=== PATIENT | female | born 1990 | race Two or more races ===

== ENCOUNTER 2024-11-13 12:24 | Outpatient (REF) | payer MEDICAID, OTHER, SELFPAY ==
--- OUTSIDE RECORDS SUMMARY | 2024-11-13 14:43 | XMS_ITS | Clinical Summary ---
Author Organization [employer] Address [address] [place] [address] 7 [place] [address] Care Team Providers Care Banking Officer Name Role Phone Unavailable Primary Care Provider Unavailabl e Allergies No known active allergies Active Problems Problem Noted Date Diagnosed Date Breast pain, left 09/26/2024 Nipple pain 09/26/2024 Dysmenorrhea 09/26/2024 Assessment & Plan (09/26/2024 10:30 AM EST): Take medication with full stomach PRN Encounters Date Type Department Care Team Description 11/07/2024 Telephone [facility] [address] [place] [phone] Myke Leon MD 09/28/2024 Orders Only [facility] [address] [place] [phone] Robyn Mckoy MD Nipple pain (Primary Dx); Breast pain, left 09/28/2024 Telephone [facility] [address] [place] [phone] Robyn Mckoy MD BREAST ORDER 09/26/2024 10:20 AM EST Office Visit [facility] [address] [place] [address] [phone] Robyn Mckoy MD Breast pain, left (Primary Dx); Nipple pain; Dysmenorrhea 09/26/2024 Telephone [facility] [address] [place] [address] [phone] Robyn Mckoy MD New patient appt. from Last 3 Months Social History Tobacco Use Types Packs/Day Years Used Date Smoking Tobacco: Never Assessed Comments Unknown Sex and Gender Information Value Date Recorded Sex Assigned at Female 09/26/2024 9:12 AM EST Legal Sex Female 12:49 PM EST Gender Identity Female 09/26/2024 9:12 AM EST Sexual Orientation Straight 09/26/2024 9: 12 AM EST Last Filed Vital Signs Vital Sign Reading Time Taken Comments Blood Pressure 126/73 09/26/2024 9:59 AM EST Pulse 77 09/26/2024 9:59 AM EST Temperature 36.7 ??C (98.1 ??F) 09/26/2024 9:59 AM ES T Respiratory Rate 16 09/26/2024 9:59 AM EST Oxygen Saturation 99% 09/26/2024 9:59 AM EST Inhaled Oxygen Concentration - - Weight 84.8 kg (187 lb) 09/26/2024 9:59 AM EST Height - - Body Mass Index - - Plan of Treatment Health Maintenance Due Date Last Done Comments Depression Screening 1991 HIV Screening 1991 SDOH Screening 1991 Alcohol/Substance Use Screening 2003 Tobacco Screening 2003 Family Planning (PISQ) 2006 Hepatitis C Screening 2009 Pap Smear 2012 Cervical Cancer Screening 2021 HPV/Cotest 2021 COVID-19 Vaccine (3 - 2023-2 5 season) 2024 05/17/2021, 03/11/2021 Hepatitis B Vaccines (2 of 3 - 19+ 3-dose series) 07/05/2024 06/07/2024 IPV Vaccines (2 of 3 - Adult catch-up series) 10/14/2024 09/16/2024 DTaP/Tdap/Td Vaccines (2 - T d or Tdap) 06/07/2034 06/07/2024 Zoster Vaccines (1 of 2) 2041 RSV Patients and Patients Aged 60 years or older (1 - 1-dose 75+ series) 2066 Influenza Vaccine Completed 06/07/2024 HIB Vaccines Aged Out No longer eligi ble based on patient's age to complete this topic HPV Vaccines Aged Out No longer eligi ble based on patient's age to complete this topic Hepatitis A Vaccines Aged Out No long er eligible based on patient's age to complete this topic Meningococcal Vaccine Aged Out No clemente balbina eligible based on patient's age to complete this topic Pneumococcal Vaccine: Pediatrics (0 to 5 Years) and At-Risk Patients (6 to 49) Years) Aged Out No longer eligible b ased on patient's age to complete this topic RSV under 20 months Aged Out No longe r eligible based on patient's age to complete this topic Rotavirus Vaccines Aged Out No longer eligible based on patient's age to complete this topic [place] [address] [place] [address] [facility] FULL
== END 2024-11-13 12:25 | disposition home or self-care (01) ==
LOC: HO.MAMMO 12:24
PROVIDERS: PCP Internal Medicine; Visit Provider Internal Medicine
DX: Z13.89 Encounter for screening for other disorder (principal)

== ENCOUNTER 2025-02-28 10:23 | Outpatient (REF) | payer MEDICAID, OTHER, SELFPAY ==
--- NOTE | ~2025-02-28 | MM_ITS ---
EXAMINATION: MM DIAGNOSTIC DIGITAL BREAST TOMOSYNTHESIS, BILATERAL Limited left ultrasound. CLINICAL INFORMATION: Left nipple pain previously, patient does not feel pain today no suspicious masses calcifications or other abnormal findings. Patient has a palpable superficial skin lump medial to the left breast overlying the sternum. COMPARISON: Mammography: Comparison is made with relevant prior exams. TECHNIQUE: Digital breast mammography with tomosynthesis is performed in both the craniocaudal and mediolateral oblique views along with computer-aided detection (CAD). FINDINGS: There are scattered areas of fibroglandular density (ACR BI-RADS breast composition Category b). Right: There are no significant masses, abnormal calcifications, or other abnormalities. Left: No suspicious masses calcifications or other abnormal findings. Part of the palpable marker in the far medial breast overlying the sternum is seen without underlying abnormal finding. Targeted color Doppler ultrasound scanning in the retroareolar region site of previous nipple pain demonstrates normal fibroglandular breast tissue. Targeted color Doppler ultrasound scanning in the area of the palpable superficial lump overlying the sternum 8:00 10 cm from the nipple demonstrates a subcutaneous oval hypoechoic circumscribed solid mass versus complicated cyst versus epidermal inclusion cyst measuring 9 x 9 x 5 mm. Results are provided to the patient at time of visit by the technologist. MM/MM tomosynthesis diagnostic BI IMPRESSION: Right: Negative. Left: 1. No mammographic or sonographic abnormal finding to account for the patient's left nipple pain. Recommend clinical evaluation follow-up. 2. Hypoechoic oval circumscribed subcutaneous solid mass versus complicated cyst versus epidermal inclusion cyst 8:00 14 cm from the nipple overlying the sternal area. Recommend 6 month follow-up ultrasound for further evaluation of stability. ASSESSMENT: BI-RADS BI-RADS 3 - Probably benign finding(s) - 6 month follow-up suggested RECOMMENDATION: 6 Month F/U This patient's information was entered into a reminder system with a target due date for their next mammogram. Electronically signed by: Kelly Washington DO 02/28/2025 11:26 AM EDT
--- OUTSIDE RECORDS SUMMARY | 2025-02-28 11:31 | XMS_ITS | Clinical Summary ---
Author Organization [employer] Address [address] [facility] 7[address] [place] [address] Care Team Providers Care Systems Management Consultant Name Role Phone Unavailable Primary Care Provider Unavailabl e Allergies No known active allergies Medications * This document contains information received from the source organization and may not represent a complete record from that organization. sertraline (Zoloft) 25 MG tablet Take 1 tablet (25 mg) by mouth Once per day. 30 tablet 2 5 12/22/19 26 Active hydrOXYzine pamoate (Vistaril) 25 MG capsule Take 1 capsule (25 mg) by mouth every 6 (six) hours if needed for anxiety. 30 capsule 1 5 12/22/19 26 Active baclofen (Lioresal) 10 MG tablet Take 1 tablet (10 mg) by mouth if needed in the morning, at noon, and at bedtime for muscle spasms. 60 tablet 1 5 Active Diclofenac Sodium 1 % gel Apply 2 g topically if needed in the morning, at noon, in the evening, and at bedtime (pain). 150 g 3 5 Active traZODone (Desyrel) 50 MG tablet Take 0.5 tablets (25 mg) by mouth at bedtime. 15 tablet 5 Active Active Problems Problem Noted Date Diagnosed Date Moderate recurrent major depression 12/21/2024 Breast pain, left 09/26/2024 Nipple pain 09/26/2024 Dysmenorrhea 09/26/2024 Assessment & Plan (09/26/2024 10:30 AM EST): Take medication with full stomach PRN Encounters * This document contains information received from the source organization and may not represent a complete record from that organization. Date Type Department Care Team Description 01/16/2025 Telephone [facility] [address] [place] [phone] Shameka Palacio [place] Appointment Request 12/21/2024 2:20 PM EDT Office Visit [facility] [address] [place] [address] Morena Childress DO Daily headache (Primary Dx); Anxiety and depression; Neck pain from Last 3 Months Social History Tobacco Use Types Packs/Day Years Used Date Smoking Tobacco: Never Assessed Depression Answer Date Recorded Patient Health Questionnaire-9 Score 15 12/21/2024 Patient Health Questionnaire-9 Score 15 12/21/2024 Last PHQ-9: Questionnaire Data Not on file 0 12/21/2024 Depression Answer Date Recorded Patient Health Questionnaire-2 Score 6 12/21/2024 Comments Unknown Sex and Gender Information Value Date Recorded Sex Assigned at Female 09/26/2024 9:12 AM EST Legal Sex Female 12:49 PM EST Gender Identity Female 09/26/2024 9:12 AM EST Sexual Orientation Straight 09/26/2024 9: 12 AM EST Last Filed Vital Signs Vital Sign Reading Time Taken Comments Blood Pressure 129/85 12/21/2024 2:50 PM EDT Pulse 80 12/21/2024 2:50 PM EDT Temperature 36.6 C (97.9 F) 12/21/2024 2:50 PM EDT Respiratory Rate 16 12/21/2024 2:50 PM EDT Oxygen Saturation 99% 12/21/2024 2:50 PM EDT Inhaled Oxygen Concentration - - Weight 83.9 kg (185 lb) 12/21/2024 2:50 PM EDT Height - - Body Mass Index - - Plan of Treatment Upcoming Encounters Date Type Department Care Team (Late st Contact Info) Description 03/29/2025 9:15 AM EDT Office Visit [facility] [address] [place] [phone] Danielle Delaney MD [address] [place] [address] Health Maintenance Due Date Last Done Comments SDOH Screening 1991 Disability Screening 1991 Alcohol/Substance Use Screening 2003 Tobacco Screening 2003 Family Planning (PISQ) 2006 HPV Vaccines (1 - 3-dose series) 2006 Hepatitis C Screening 2009 Pap Smear 2012 Cervical Cancer Screening 2021 HPV/Cotest 2021 COVID-19 Vaccine (3 - 2023-2 5 season) 2024 05/17/2021, 03/11/2021 Hepatitis B Vaccines (2 of 3 - 19+ 3-dose series) 07/05/2024 06/07/2024 IPV Vaccines (2 of 3 - Adult catch-up series) 10/14/2024 09/16/2024 Influenza Vaccine (#1) 2025 06/07/2024 Depression Monitoring 06/23/2025 12/21/2024 , 12/21/2024 DTaP/Tdap/Td Vaccines (2 - T d or Tdap) 06/07/2034 06/07/2024 Zoster Vaccines (1 of 2) 2041 RSV Patients and Patients Aged 60 years or older (1 - 1-dose 75+ series) 2066 HIV Screening Completed 03/30/2024 HIB Vaccines Aged Out No longer eligi ble based on patient's age to complete this topic Hepatitis A Vaccines Aged Out No long er eligible based on patient's age to complete this topic Meningococcal B Vaccine Aged Out No l onger eligible based on patient's age to complete this topic Meningococcal Vaccine Aged Out No clemente balbina eligible based on patient's age to complete this topic Pneumococcal Vaccine: Pediatrics (0 to 5 Years) and At-Risk Patients (6 to 49) Years Aged Out No longer eligible b ased on patient's age to complete this topic RSV under 20 months Aged Out No longe r eligible based on patient's age to complete this topic Rotavirus Vaccines Aged Out No longer eligible based on patient's age to complete this topic Procedures Procedure Name Priority Date/Time Associated Diagnosis Comments BI MAMMOGRAM DIAGNOSTIC TOMOSYNTHESIS BILATERAL Routine 02/28/2025 10:48 AM EDT Breast pain, left Nipple pain from Last 3 Months Results * BI Mammogram Diagnostic Tomosynthesis Bilateral (02/28/2025 10:48 AM EDT) Anatomical Region Laterality Modality Breast Bilateral Mammography 02/28/2025 10:4 8 AM EDT Narrative 02/28/2025 11:30 AM EDT [facility] [address] [place], [place] [address] Mammography Report Signed Patient: Sharmin Engle R#: [id number] : 1990 Acct:[id number] Age/Sex: 34 / F ADM Date: 02/28/25 Loc: HO.MAMMO Attending Dr: Robyn Flores MD Ordering Physician: Robyn Mckoy MD Results: 3.6MProbably Benign Finding - Short 6 M F/U Suggested Date of Service: 02/28/25 Follow Up: 6 Month F/U Procedure(s): MM tomosynthesis diagnostic BI Accession Number(s): [id number] cc: Robyn Mckoy MD EXAMINATION: MM DIAGNOSTIC DIGITAL BREAST TOMOSYNTHESIS, BILATERAL Limited left ultrasound. CLINICAL INFORMATION: Left nipple pain previously, patient does not feel pain today no suspicious masses calcifications or other abnormal findings. Patient has a palpable superficial skin lump medial to the left breast overlying the sternum. COMPARISON: Mammography: Comparison is made with relevant prior exams. TECHNIQUE: Digital breast mammography with tomosynthesis is performed in both the craniocaudal and mediolateral oblique views along with computer-aided detection (CAD). FINDINGS: There are scattered areas of fibroglandular density (ACR BI-RADS breast composition Category b). Right: There are no significant masses, abnormal calcifications, or other abnormalities. Left: No suspicious masses calcifications or other abnormal findings. Part of the palpable marker in the far medial breast overlying the sternum is seen without underlying abnormal finding. Targeted color Doppler ultrasound scanning in the retroareolar region site of previous nipple pain demonstrates normal fibroglandular breast tissue. Targeted color Doppler ultrasound scanning in the area of the palpable superficial lump overlying the sternum 8:00 10 cm from the nipple demonstrates a subcutaneous oval hypoechoic circumscribed solid mass versus complicated cyst versus epidermal inclusion cyst measuring 9 x 9 x 5 mm. Results are provided to the patient at time of visit by the technologist. MM/MM tomosynthesis diagnostic BI IMPRESSION: Right: Negative. Left: 1. No mammographic or sonographic abnormal finding to account for the patient's left nipple pain. Recommend clinical evaluation follow-up. 2. Hypoechoic oval circumscribed subcutaneous solid mass versus complicated cyst versus epidermal inclusion cyst 8:00 14 cm from the nipple overlying the sternal area. Recommend 6 month follow-up ultrasound for further evaluation of stability. ASSESSMENT: BI-RADS BI-RADS 3 - Probably benign finding(s) - 6 month follow-up suggested RECOMMENDATION: 6 Month F/U This patient's information was entered into a reminder system with a target due date for their next mammogram. Electronically signed by: Kelly Washington DO 02/28/2025 11:26 AM EDT Dictated By: Kelly Washington DO Signed By: <Electronically signed by Kelly Washington DO in OV> 02/28/25 1126 DD/ 1048 TD/TT: 02/28/25 1100 [place] Assessment Specialist: Procedure Note Donotuseinterpreter, Image - [facility] [address] [place] [address] Mammography Report Signed Patient: Riddhi Engle R#: [id number] : 1990Acct:[id number] Age/Sex: 34 / FADM Date: 02/28/25 Loc: HO.MAMMO Attending Dr: Robyn Flores MD Ordering Physician: Robyn Mckoy MD Results: 3.6MProbably Benign Finding - Short 6 M F/U Suggested Date of Service: 02/28/25Follow Up: 6 Month F/U Procedure(s): MM tomosynthesis diagnostic BI Accession Number(s): [id number] cc: Robyn Mckoy MD EXAMINATION: MM DIAGNOSTIC DIGITAL BREAST TOMOSYNTHESIS, BILATERAL Limited left ultrasound. CLINICAL INFORMATION: Left nipple pain previously, patient does not feel pain today no suspicious masses calcifications or other abnormal findings. Patient has a palpable superficial skin lump medial to the left breast overlying the sternum. COMPARISON: Mammography: Comparison is made with relevant prior exams. TECHNIQUE: Digital breast mammography with tomosynthesis is performed in both the craniocaudal and mediolateral oblique views along with computer-aided detection (CAD). FINDINGS: There are scattered areas of fibroglandular density (ACR BI-RADS breast composition Category b). Right: There are no significant masses, abnormal calcifications, or other abnormalities. Left: No suspicious masses calcifications or other abnormal findings. Part of the palpable marker in the far medial breast overlying the sternum is seen without underlying abnormal finding. Targeted color Doppler ultrasound scanning in the retroareolar region site of previous nipple pain demonstrates normal fibroglandular breast tissue. Targeted color Doppler ultrasound scanning in the area of the palpable superficial lump overlying the sternum 8:00 10 cm from the nipple demonstrates a subcutaneous oval hypoechoic circumscribed solid mass versus complicated cyst versus epidermal inclusion cyst measuring 9 x 9 x 5 mm. Results are provided to the patient at time of visit by the technologist. MM/MM tomosynthesis diagnostic BI IMPRESSION: Right: Negative. Left: 1. No mammographic or sonographic abnormal finding to account for the patient's left nipple pain. Recommend clinical evaluation follow-up. 2. Hypoechoic oval circumscribed subcutaneous solid mass versus complicated cyst versus epidermal inclusion cyst 8:00 14 cm from the nipple overlying the sternal area. Recommend 6 month follow-up ultrasound for further evaluation of stability. ASSESSMENT: BI-RADS BI-RADS 3 - Probably benign finding(s) - 6 month follow-up suggested RECOMMENDATION: 6 Month F/U This patient's information was entered into a reminder system with a target due date for their next mammogram. Electronically signed by: Kelly Washington DO 02/28/2025 11:26 AM EDT Dictated By: Kelly Washington DO Signed By: <Electronically signed by Kelly Washington DO in OV> 02/28/25 1126 DD/ 1048 TD/TT: 02/28/25 1100 [place] Assessment Specialist: us Robyn Flores MD IMG BI PROCEDURES Fin al Result from Last 3 Months Insurance [facility] HSN FULL
== END 2025-02-28 10:24 | disposition home or self-care (01) ==
LOC: HO.MAMMO 10:23
PROVIDERS: PCP Internal Medicine; Visit Provider Internal Medicine
DX: N64.4 Mastodynia (principal)
CPT/HCPCS: 76642; 77062; 77066

== ENCOUNTER → 2025-02-28 10:30 | Outpatient (BNV) | payer SELFPAY | PROVIDERS: PCP Internal Medicine; Visit Provider Internal Medicine | DX: N63.42 Unspecified lump in left breast, subareolar (principal); R92.323 Mammographic fibroglandular density, bilateral breasts | CPT/HCPCS: 76642; 77062; 77066 ==

== ENCOUNTER 2025-03-29 10:25 | Outpatient (REF) | payer MEDICAID, OTHER, SELFPAY ==
[2025-03-29 11:47] LABS: Hemoglobin A1C 122.2523 umol/L; Total Hemoglobin (HGBA1C) 3427.2234 umol/L
--- OUTSIDE RECORDS SUMMARY | 2025-03-29 11:57 | XMS_ITS | Encounter Summary ---
Author Organization [employer] Address [address] [facility] 7[address] [place] [address] Care Team Providers Care Phlebotomy Support Tech Name Role Phone Unavailable Primary Care Provider Unavailabl e Reason for Visit * Reason Onset Date Comments Chart Prep 03/27/2025 Encounter Details Date Type Department Care Team (Late st Contact Info) Description 03/27/[address] [facility] [address] [place], [place] [phone] Danielle Delaney MD [address] [place], [place] [phone] Chart Prep Social History Tobacco Use Types Packs/Day Years Used Date Smoking Tobacco: Never Assessed Depression Answer Date Recorded Patient Health Questionnaire-9 Score 15 12/21/2024 Patient Health Questionnaire-9 Score 15 12/21/2024 Last PHQ-9: Questionnaire Data Not on file 0 12/21/2024 Housing Stability Answer Date Recorded What is your housing situation today? I have pj cramer 03/22/[address] you li ve. Do you have problems with any of the following? None of the above 03/22/2025 Food Insecurity Answer Date Recorded Within the past 12 months, y ou worried that your food would run out before you got money to buy more: Never True 03/22/2025 Within the past 12 months,th e food you bought just didn't last and you didn't have enough money to get more: Never True Transportation Answer Date Recorded In the past 12 months, has l ack of transportation kept you from medical appts, meetings, work or from getting things needed for daily living? No 03/22/2025 Utilities Answer Date Recorded In the past 12 months, has t he electric, gas, oil or water company threatened to shut off services in your home? No 03/22/2025 Depression Answer Date Recorded Patient Health Questionnaire-2 Score 6 12/21/2024 Internet Access Answer Date Recorded Internet Access Q1 Yes 03/22/2025 Internet Access Q2 Not on file 03/22/2025 Comments Unknown Sex and Gender Information Value Date Recorded Sex Assigned at Female 09/26/2024 9:12 AM EST Legal Sex Female 12:49 PM EST Gender Identity Female 09/26/2024 9:12 AM EST Sexual Orientation Straight 09/26/2024 9: 12 AM EST documented as of this encounter Miscellaneous Notes * Telephone Encounter - Kya Coughlin MA - 03/27/2025 6:27 PM EDT Chart Prep Labs: not applicable Images: done Referrals: complete Vaccines due: Covid, Hep B, HPV, and IPV Screenings: pap smear, LMP, and Hepatitis C Screening Overdue care gaps: SBIRT, PHQ-9, JOY-7, and Disability screen documented in this encounter Plan of Treatment Upcoming Encounters Date Type Department Care Team (Late st Contact Info) Description 04/30/2025 9:30 AM EDT Clinical Support [facility] [address] [place] [phone] 05/31/2025 10:15 AM EDT Office Visit [facility] [address] [place] [phone] Danielle Delaney MD [address] [place] [phone] documented as of this encounter Visit Diagnoses Not on filedocumented in this encounter Additional Health Concerns Assessment Noted Time PHQ-9 Depression Total Score: 15 025 3:49 PM EDT documented as of this encounter
[2025-03-29 12:11] LABS: Cholesterol 183 mg/dL (<200); HDL Cholesterol 55 mg/dL (>40); Triglycerides 47 mg/dL (<150)
[2025-03-29 13:36] LABS: HIV Num 1 0.21 S/CO (0.00-0.99)
[2025-03-29 13:41] LABS: Syphilis Screen Nonreactive (Nonreactive)
[2025-03-29 14:04] LABS: Reflex LDLD? No
== END 2025-03-29 10:26 | disposition home or self-care (01) ==
LOC: HO.HHCL 10:25
PROVIDERS: PCP Internal Medicine; Visit Provider Internal Medicine
DX: Z00.00 Encounter for general adult medical examination without abnormal findings (principal); E66.811 Obesity, class 1; Z68.33 Body mass index [BMI] 33.0-33.9, adult; Z11.4 Encounter for screening for human immunodeficiency virus [HIV]
CPT/HCPCS: 36415; 80061; 83036; 84443; 86780; 87389